=== PATIENT | male | born 1945 | race African-American/Black ===

== ENCOUNTER 2017-01-25 12:39 | Outpatient (CLI) | payer MEDICARE, BC | END 2017-01-25 23:59 | disposition home or self-care (01) | LOC: WOU 12:39 | PROVIDERS: ATTEND Podiatrist Foot & Ankle Surgery | DX: M72.2 Plantar fascial fibromatosis (principal); M76.72 Peroneal tendinitis, left leg; Z87.891 Personal history of nicotine dependence | CPT/HCPCS: G0463 ==

== ENCOUNTER 2017-02-05 12:50 | Outpatient (CLI) | payer MEDICARE, BC | END 2017-02-05 23:59 | disposition home or self-care (01) | LOC: WOU 12:50 | PROVIDERS: ATTEND Podiatrist Foot & Ankle Surgery | DX: M72.2 Plantar fascial fibromatosis (principal); R60.0 Localized edema; M19.072 Primary osteoarthritis, left ankle and foot; M65.862 Other synovitis and tenosynovitis, left lower leg; S93.692A Other sprain of left foot, initial encounter; X58.XXXA Exposure to other specified factors, initial encounter; Y92.89 Other specified places as the place of occurrence of the external cause | CPT/HCPCS: G0463 ==

== ENCOUNTER 2017-03-12 13:04 | Outpatient (CLI) | payer MEDICARE, BC | END 2017-03-12 23:59 | disposition home or self-care (01) | LOC: WOU 13:04 | PROVIDERS: ATTEND Podiatrist Foot & Ankle Surgery | DX: M72.2 Plantar fascial fibromatosis (principal); M65.862 Other synovitis and tenosynovitis, left lower leg; R60.0 Localized edema; I10 Essential (primary) hypertension; Z88.0 Allergy status to penicillin | CPT/HCPCS: G0463 ==

== ENCOUNTER 2017-04-09 08:38 | Outpatient (CLI) | payer MEDICARE, BC | END 2017-04-09 23:59 | disposition home or self-care (01) | LOC: WOU 08:38 | PROVIDERS: ATTEND Podiatrist Foot & Ankle Surgery | DX: M65.872 Other synovitis and tenosynovitis, left ankle and foot (principal); M72.2 Plantar fascial fibromatosis; R60.0 Localized edema | CPT/HCPCS: G0463 ==

== ENCOUNTER 2017-05-08 08:00 | Outpatient (CLI) | payer MEDICARE, BC | END 2017-05-08 23:59 | disposition home or self-care (01) | LOC: WOU 08:00 | PROVIDERS: ATTEND Podiatrist Foot & Ankle Surgery | DX: M21.42 Flat foot [pes planus] (acquired), left foot (principal); M21.41 Flat foot [pes planus] (acquired), right foot; M65.872 Other synovitis and tenosynovitis, left ankle and foot; L85.3 Xerosis cutis | CPT/HCPCS: G0463 ==

== ENCOUNTER 2017-06-25 13:22 | Outpatient (CLI) | payer MEDICARE, BC | END 2017-06-25 23:59 | disposition home or self-care (01) | LOC: WOU 13:22 | PROVIDERS: ATTEND Podiatrist Foot & Ankle Surgery | DX: M25.872 Other specified joint disorders, left ankle and foot (principal); S90.122A Contusion of left lesser toe(s) without damage to nail, initial encounter; W18.30XA Fall on same level, unspecified, initial encounter; Y93.K1 Activity, walking an animal; Y92.89 Other specified places as the place of occurrence of the external cause; S90.32XA Contusion of left foot, initial encounter; E87.2 Acidosis | CPT/HCPCS: G0463 ==

== ENCOUNTER 2017-06-26 11:26 | Outpatient (CLI) | payer MEDICARE, BC | END 2017-06-26 23:59 | disposition home or self-care (01) | LOC: RAD 11:26 | PROVIDERS: ATTEND Podiatrist Foot & Ankle Surgery | DX: M19.072 Primary osteoarthritis, left ankle and foot (principal); M19.071 Primary osteoarthritis, right ankle and foot; M20.11 Hallux valgus (acquired), right foot; M21.611 Bunion of right foot; M21.072 Valgus deformity, not elsewhere classified, left ankle; M21.071 Valgus deformity, not elsewhere classified, right ankle | CPT/HCPCS: 73630-TC ==

== ENCOUNTER 2017-07-03 10:45 | Outpatient (CLI) | payer MEDICARE, BC | END 2017-07-03 23:59 | disposition home or self-care (01) | LOC: WOU 10:45 | PROVIDERS: ATTEND Podiatrist Foot & Ankle Surgery | DX: S99.922D Unspecified injury of left foot, subsequent encounter (principal); M25.572 Pain in left ankle and joints of left foot; M79.672 Pain in left foot; B35.3 Tinea pedis; W18.30XD Fall on same level, unspecified, subsequent encounter; Y93.K1 Activity, walking an animal; I82.5Z2 Chronic embolism and thrombosis of unspecified deep veins of left distal lower extremity; Z79.01 Long term (current) use of anticoagulants | CPT/HCPCS: G0463 ==

== ENCOUNTER 2017-07-31 10:14 | Outpatient (CLI) | payer MEDICARE, BC | END 2017-07-31 23:59 | disposition home or self-care (01) | LOC: WOU 10:14 | PROVIDERS: ATTEND Podiatrist Foot & Ankle Surgery | DX: B35.3 Tinea pedis (principal); M72.2 Plantar fascial fibromatosis; R60.0 Localized edema; M25.572 Pain in left ankle and joints of left foot; Z86.718 Personal history of other venous thrombosis and embolism; Z79.01 Long term (current) use of anticoagulants | CPT/HCPCS: G0463 ==

== ENCOUNTER 2017-08-01 08:54 | Outpatient (CLI) | payer MEDICARE, BC ==
[2017-08-01] MEDS ORDERED: IOHEXOL-300 100 ML VIAL IV ONE (09:15)
[2017-08-01] MEDS ORDERED: CT SWABBABLE VALVE TRANS SET 1 EA INFUS.SET MC ONE (09:15)
[2017-08-02 08:10] LABS: HOMOCYSTEINE, PLASMA 9.4 umol/L (0.0-15.0)
== END 2017-08-01 23:59 | disposition home or self-care (01) ==
LOC: CT 08:54
PROVIDERS: ATTEND Internal Medicine Hematology & Oncology
DX: N40.0 Benign prostatic hyperplasia without lower urinary tract symptoms (principal); I82.4Z2 Acute embolism and thrombosis of unspecified deep veins of left distal lower extremity; M47.894 Other spondylosis, thoracic region; I25.10 Atherosclerotic heart disease of native coronary artery without angina pectoris; N28.1 Cyst of kidney, acquired; J90 Pleural effusion, not elsewhere classified
CPT/HCPCS: 36415; 71270; 74178; 81240; 81241; 83090; 85303; 85305; 85613; 85670; 85705; 85732; 86038; Q9967

== ENCOUNTER 2017-09-05 09:02 | Emergency (ER) | payer MEDICARE, BC ==
[2017-09-05] MEDS ORDERED: RIVA10TA PO (11:33)
[2017-09-05] MEDS ORDERED: TERA10CA4 PO (11:33)
[2017-09-05] MEDS ORDERED: AMLO10TA6 PO (11:33)
[2017-09-05] MEDS ORDERED: METO-357 PO (11:33)
[2017-09-05] MEDS ORDERED: MULT-1196 PO (11:33)
[2017-09-05] MEDS ORDERED: FINA5TAB11 PO (11:33)
[2017-09-05] MEDS ORDERED: SIMV20TA6 PO (11:33)
[2017-09-05] MEDS ORDERED: BENA40TA8 PO (11:33)
== END 2017-09-05 09:14 | disposition left against medical advice (07) ==
LOC: ER 09:04
DX: Z53.21 Procedure and treatment not carried out due to patient leaving prior to being seen by health care provider (principal)

== ENCOUNTER 2017-09-05 10:58 | Inpatient (IN) | payer MEDICARE, BC ==
[2017-09-05] VITALS: BP 141/60
[~2017-09-05] VITALS: Ht 182.9 cm; Wt 95.7 kg
--- NOTE | 2017-09-05 11:05 | NUR ---
[id number]: C/O PALPITATIONS, UNCONTROLLED A-FIB PER CLINIC. PATIENT ARRIVED WITH IV ON RFA, 18G, PATENT. A/OX 4. BREATHING EVEN AND UNLABORED. NO SOB, TACHYCARDIC, HR FLUCTUATING UP TO 140'S. SAFETY AND COMFORT MEASURES IN PLACE. MD AT BEDSIDE FOR EVAL.
[2017-09-05] MEDS ORDERED: DILTIAZEM HCL 25 MG IV ONE (11:20)
[2017-09-05] MEDS ORDERED: ASPIRIN 325 MG TABLET ONE (11:20)
[2017-09-05 11:23] LABS: BASOPHILS % (AUTO) 0.2 % (0.0-2.0); EOSINOPHILS % (AUTO) 1.9 % (0.0-6.0); HEMATOCRIT 43 % (39-51); HEMOGLOBIN 14.7 g/dL (13.5-17.5); LYMPHOCYTES # (AUTO) 1.7 /CMM (0.8-4.8); LYMPHOCYTES % (AUTO) 26.1 % (20.0-44.0); MEAN CORPUSCULAR HGB CONC 34 g/dl (31.0-36.0); MEAN CORPUSCULAR VOLUME 89 fL (80-96); MONOCYTES # (AUTO) 0.6 /CMM (0.1-1.30); MONOCYTES % (AUTO) 9.8 % (2.0-12.0); PLATELET COUNT (AUTO) 170 /CMM (150-450); RDW COEFFICIENT OF VARIATION 13.9 (11.5-15.0); RED BLOOD CELL COUNT(AUTO) 4.86 MIL/uL (4.5-6.0); WHITE BLOOD COUNT (AUTO) 6.4 K/uL (4.3-11.0)
[2017-09-05] MEDS ORDERED: DILTIAZEM HCL IV 125 MG in IV D5W 100 ML IV ONE (11:30)
[2017-09-05] MEDS ORDERED: ASPIRIN 325 MG TABLET PO ONE (11:30)
[2017-09-05] MEDS ORDERED: DILTIAZEM HCL 25 MG IV IVP ONE (11:30)
[2017-09-05] MEDS ORDERED: IV NS 0.9% 500 ML BAG IV ONE (11:30)
[2017-09-05 11:33] LABS: CALCIUM, SERUM 9.1 mg/dL (8.5-10.1); CARBON DIOXIDE 28 mmol/L (21-32); CHLORIDE 104 mmol/L (98-107); CREATININE 1.2 mg/dL (0.6-1.3); GLUCOSE 130 mg/dL (74-106); POTASSIUM 3.7 mmol/L (3.5-5.1); SODIUM SERUM 141 mmol/L (136-145); UREA NITROGEN, BLOOD 20 mg/dL (7-18)
[2017-09-05] MEDS ORDERED: MULT-1196 PO (11:33)
[2017-09-05] MEDS ORDERED: BENA40TA8 PO (11:33)
[2017-09-05] MEDS ORDERED: TERA10CA4 PO (11:33)
[2017-09-05] MEDS ORDERED: SIMV20TA6 PO (11:33)
[2017-09-05] MEDS ORDERED: METO-357 PO (11:33)
[2017-09-05] MEDS ORDERED: FINA5TAB11 PO (11:33)
[2017-09-05] MEDS ORDERED: RIVA10TA PO (11:33)
[2017-09-05] MEDS ORDERED: AMLO10TA6 PO (11:33)
[2017-09-05 11:37] LABS: INR 1.15 (0.87-1.13)
[2017-09-05 11:43] LABS: TROPONIN I < 0.017 ng/mL (0.00-0.056)
--- NOTE | 2017-09-05 12:20 | NUR ---
RECEIVED ADMITTING ORDERS FROM DR. OCASIO AND PLACED IN CHART.
--- NOTE | 2017-09-05 12:30 | NUR ---
REPORT GIVEN TO AUGUSTO NAVARRETE FOR VJ.
[2017-09-05] MEDS ORDERED: Magnesium 1GM/D5W 100ML PREMIX 200 ML IV ONE (12:42)
[2017-09-05] MEDS: Magnesium 1GM/D5W 100ML PREMIX 100 ML IV SCH ×2 (12:45→13:30)
--- NOTE | 2017-09-05 12:45 | NUR ---
INFUSE 2 BAGS OF MAG OVER [address] PIERCE, MEDICATION INFUSING ON TRANSFER TO FLOOR.
--- NOTE | 2017-09-05 12:50 | NUR ---
DR. CURRAN AT BEDSIDE FOR EVAL.
--- NOTE | 2017-09-05 12:55 | NUR ---
PATIENT TRANSPORTED TO [facility] VIA ACLS PROTOCOL, RNAUGUSTO TO PROVIDE VJ.
[2017-09-05] MEDS: BENAZEPRIL HCL 5 MG TABLET PO SCH (13:00)
[2017-09-05] MEDS: FINASTERIDE (5 MG) 5 MG TABLET PO SCH (13:00)
[2017-09-05 13:19] VITALS: BP 111/70
--- NOTE | 2017-09-05 13:20 | NUR ---
ALIYAH RN NOTE RECEIVED PATIENT FROM ER WITH DX RVR AFIB , ALERT ORIENTED X4 ,UNDER CARE DR OCASIO . PLACED ON TELE MONITOR A FIB 105 , VS TAKEN , HOSPITAL ORIENTATION DONE BODY CHECK DONE, KEEP BED IN LOWEST AND LOCKED POSITION , NO C\O CHEST PAIN OR DISCOMFORT AT THIS TIME , NO SOB ON RA SAT 95% , RT FA HL INTACT ON CARDIZEM DRIP ORDERED FROM ER , WILL CONT TO MONITOR CLOSELY
[2017-09-05 13:30] VITALS: BP 111/70
[2017-09-05] MEDS: METOPROLOL SUCCINATE 50 MG TAB.SR.24H PO SCH (14:30)
[2017-09-05 14:47] LABS: THYROID STIMULATING HORMONE 2.462 uIU/mL (0.358-3.74)
[2017-09-05] MEDS: NITROGLYCERIN 30 GM TUBE TP SCH (15:00)
[2017-09-05] MEDS ORDERED: ONDANSETRON HCL/PF 4 MG/2 ML VIAL IVP PRN (15:00)
[2017-09-05] MEDS ORDERED: ACETAMINOPHEN 325 MG TABLET PO PRN (15:00)
--- NOTE | 2017-09-05 15:13 | NUR ---
ALIYAH RN NOTE \PER PATIENT METOPROLOL AND BENAZEPRIL, PROSCAR WAS TAKEN BY PATENT EARLIER IN AM ALSO CALLED PHARMACY TO CLARIFY DOSE BENANSERIN, SPOKE WITH CARLOS STATED THAT DR OCASIO WILL CHANGE DOSE OF BENAZEPRIL, LEXIE HAS TAKEN AT HOME 40 MG WILL F\U CONSENT FOR STRESS TEST OBTAINED Addendum: 09/05/17 at 1517 by AUGUSTO CARMEN RN NITRO BID OINT HOLD PER ORDER BP 102/59 HR 78
[2017-09-05] MEDS ORDERED: DILTIAZEM HCL IV 125 MG in IV D5W 100 ML IV PRN (15:30)
[2017-09-05 16:00] VITALS: BP 90/61
[2017-09-05 16:25] VITALS: BP 90/61
--- NOTE | 2017-09-05 16:46 | NUR ---
ALIYAH RN NOTE ,SPOKE WIT DR OCASIO NOTIFIED THAT PATIENT ON TELE MONITOR AFIB HR 88 BUT BP 90/61 NO C\O CHEST PAIN, ON CARDIZEM DRIP 8 MG PER HOUR, PER DR OCASIO ORDER OK TO STOP CARDIZEM DRIP ,ALSO 2D ECHO DONE, CONSENT SIGNED FOR STRES TEST
[2017-09-05] MEDS ORDERED: RIVAROXABAN 10 MG TABLET PO SCH (17:00)
[2017-09-05] MEDS: DIGOXIN INJ 0.5 MG/2 ML AMPUL IV SCH (17:46)
[2017-09-05] MEDS ORDERED: SIMVASTATIN 20 MG TABLET PO SCH (18:00)
[2017-09-05] MEDS ORDERED: ATORVASTATIN 10 MG TABLET PO SCH (18:00)
[2017-09-05 19:10] LABS: MAGNESIUM 2.4 mg/dL (1.8-2.4); PHOSPHORUS 2.8 mg/dL (2.5-4.9)
--- NOTE | 2017-09-05 19:25 | NUR ---
TRADE MARK EXAMINER NOTE PATIENT WILL HAVE STRESS TEST OK TO KEEP NPO AFTER MID MIGHT
--- NOTE | 2017-09-05 20:34 | NUR ---
RN ALIYAH INITIAL NOTE RECEIVED PT IN BED, AOX4, ON RA WELL TOLERATED, DENIES ANY DISCOMFORT AT THIS TIME, S/P CARDIZEM DRIP 10 MG, STOPPED D/T BP DECREASE TO 90/61, HR 80, NPO AFTER MDNIGHT FOR STRESS TEST IN AM PT AWARE PER AM NURSE. CURRENT BP 141/60, 59, 20, 98.8 AND 98%. WILL CONT TO MONITOR THROUGH SHIFT. ALL NEEDS ATTENDED CALL LIGHT W/R.
[2017-09-05 21:00] VITALS: BP 141/60
[2017-09-05] MEDS ORDERED: METOPROLOL TARTRATE 25 MG TABLET PO SCH (21:00)
[2017-09-06] MEDS: NITROGLYCERIN 30 GM TUBE TP SCH ×2 (00:28→06:09)
--- NOTE | 2017-09-06 00:33 | NUR ---
0000 DIGOXIN HELD HR 54
[2017-09-06 01:00] VITALS: BP 123/73
[2017-09-06 05:00] VITALS: BP 113/65
[2017-09-06] MEDS: DIGOXIN INJ 0.5 MG/2 ML AMPUL IV SCH ×2 (06:08)
--- NOTE | 2017-09-06 06:09 | NUR ---
RN ALIYAH CLOSING 0600 DIGOXIN 0.5MG AND NITRO PATCH 30GM NOT GIVEN BP AND HR 113/73 58, PT SCHEDULED FOR STRESS TEST IN AM, CONCERNED BP MIGHT DROP FURTHER. WILL ENDORSE TO AM SHIFT MONITOR.
[2017-09-06 07:19] LABS: EOSINOPHILS % (AUTO) 2.9 % (0.0-6.0); HEMATOCRIT 38 % (39-51); HEMOGLOBIN 12.9 g/dL (13.5-17.5); LYMPHOCYTES # (AUTO) 2.4 /CMM (0.8-4.8); LYMPHOCYTES % (AUTO) 36.1 % (20.0-44.0); MEAN CORPUSCULAR HGB CONC 34 g/dl (31.0-36.0); MEAN CORPUSCULAR VOLUME 90 fL (80-96); MONOCYTES # (AUTO) 0.7 /CMM (0.1-1.30); MONOCYTES % (AUTO) 9.9 % (2.0-12.0); NEUTROPHILS # (AUTO) 3.4 /CMM (1.8-8.9); NEUTROPHILS % (AUTO) 51.1 % (43.0-81.0); PLATELET COUNT (AUTO) 164 /CMM (150-450); RDW COEFFICIENT OF VARIATION 14.3 (11.5-15.0); RED BLOOD CELL COUNT(AUTO) 4.19 MIL/uL (4.5-6.0); WHITE BLOOD COUNT (AUTO) 6.6 K/uL (4.3-11.0)
[2017-09-06 07:48] LABS: TROPONIN I < 0.017 ng/mL (0.00-0.056)
[2017-09-06 07:50] LABS: ALANINE AMINOTRANSFERASE 23 U/L (12-78); ALBUMIN 2.9 g/dL (3.4-5.0); ALKALINE PHOSPHATASE 29 U/L (46-116); ASPARTATE AMINOTRANSFERASE 16 U/L (15-37); BILIRUBIN,TOTAL 0.4 mg/dL (0.2-1.0); CALCIUM, SERUM 8.3 mg/dL (8.5-10.1); CARBON DIOXIDE 29 mmol/L (21-32); CHLORIDE 107 mmol/L (98-107); CREATININE 1.3 mg/dL (0.6-1.3); GLUCOSE 96 mg/dL (74-106); MAGNESIUM 2.9 mg/dL (1.8-2.4); PHOSPHORUS 3.7 mg/dL (2.5-4.9); POTASSIUM 3.8 mmol/L (3.5-5.1); SODIUM SERUM 141 mmol/L (136-145); UREA NITROGEN, BLOOD 20 mg/dL (7-18)
[2017-09-06 07:53] LABS: CHOLESTEROL 148 mg/dL (<200); HDL CHOLESTEROL 50 mg/dL (40-60); LDL 92 mg/dL (0-99); TRIGLYCERIDES 61 mg/dL (30-150)
[2017-09-06 08:00] VITALS: BP 109/53
[2017-09-06] MEDS ORDERED: REGADENOSON 0.4 MG/5 ML DISP.SYRIN IVP ONE (08:30)
--- NOTE | 2017-09-06 08:30 | NUR ---
MS RN NOTE 7821: S/E by dr. faith, with order to may DC tele and transfer to MS. SB 55 on the monitor,. DCd tele, CN aware.
[2017-09-06] MEDS: METOPROLOL SUCCINATE 50 MG TAB.SR.24H PO SCH (09:00)
[2017-09-06] MEDS ORDERED: TERAZOSIN HCL 5 MG CAPSULE PO SCH (09:00)
[2017-09-06] MEDS ORDERED: MULTIPLE VIT (LYCOPENE/FA/MV,CA,IRON,MIN/LUT)1 TAB PO SCH (09:00)
[2017-09-06] MEDS: BENAZEPRIL HCL 5 MG TABLET PO SCH (10:03)
[2017-09-06] MEDS: FINASTERIDE (5 MG) 5 MG TABLET PO SCH (10:03)
[2017-09-06 10:04] VITALS: BP 109/53
--- NOTE | 2017-09-06 12:42 | NUR ---
MS RN NOTE 0720: Received patient awake, A/Ox4. Tolerated room air. No c/o CP, any discomfort or distress. PIV intact. Able to go to BR independently, encouraged to use call light if needed assistance. 0830: S/E by dr. Yan and Dr. Marshall, awaiting NM for stress test. 0900: Patient went to stress test, patient aware for the procedure. 1000: Patient back to stress test after breakfast. 1130: Patient back to room in good condition. No significant changes, encouraged to drink lots of water. 1240: No any significant changes noted.
--- NOTE | 2017-09-06 15:28 | NUR ---
RN NOTE 1350: Dr. Yan called and ordered for DC home, MD made DC orders and medication list, explained to patient, verbalized understanding. 1520: Discharged patient in good condition. VSS. Removed PIV, no bleeding, applied pressure and dressing. Patient verbalized understanding re: the DC instructions, meds and follow up with Dr. faith in 1 week. Checked all belongings and signed belonging list.
[2017-09-06 18:21] LABS: FREE PSA 0.22 ng/mL (0.00-45); PROSTATE SPECIFIC ANTIGEN SCR 1.36 ng/mL (0.00-4.00)
== END 2017-09-06 15:21 | disposition home or self-care (01) | DRG 309 ==
LOC: ER 11:04 → TELE-TD 12:34 → MEDSG1 09-06 09:26
PROVIDERS: ADMIT Legal Medicine; ATTEND Legal Medicine
DX: I48.91 Unspecified atrial fibrillation (principal); D68.59 Other primary thrombophilia; N40.0 Benign prostatic hyperplasia without lower urinary tract symptoms; Z86.718 Personal history of other venous thrombosis and embolism; E03.9 Hypothyroidism, unspecified; E78.5 Hyperlipidemia, unspecified; I10 Essential (primary) hypertension; Z79.01 Long term (current) use of anticoagulants; Z88.0 Allergy status to penicillin; R07.9 Chest pain, unspecified; N41.9 Inflammatory disease of prostate, unspecified
CPT/HCPCS: 36415; 71045-TC; 80048-TC; 80053-TC; 80061-TC; 82306; 83735-TC; 84100-TC; 84153-TC; 84154-TC; 84439-TC; 84443-TC; 84484-TC; 85025-TC; 85730-TC; 87081-TC; 93307-TC; A4606; A9502; J1160; J2785; J3475; J3490; J7040; J7060; Z7610

== ENCOUNTER 2017-09-09 15:03 | Emergency (ER) | payer MEDICARE, BC ==
[~2017-09-09] VITALS: Ht 182.9 cm; Wt 95.7 kg
[~2017-09-09 15:03] MED LIST: BENA40TA8 PO; FINA5TAB11 PO; METO-357 PO; MULT-1196 PO; RIVA10TA PO; SIMV20TA6 PO; TERA10CA4 PO
--- NOTE | 2017-09-09 15:10 | NUR ---
AAOX3, CAME TO ER C/O LEFT SIDE CHEST DISCOMFORT, PRESSURE-LIKE SINCE 10AM. RR IS EVEN AND UNLABORED WITH NAD NOTED. SKIN IS WARM AND DRY. PLACED ON THE MONITOR. WILL CONTINUOUSLY MONITOR THE PATIENT. AWAITING MD FOR EVAL.
[2017-09-09 15:31] LABS: BASOPHILS % (AUTO) 0.3 % (0.0-2.0); EOSINOPHILS % (AUTO) 1.8 % (0.0-6.0); HEMATOCRIT 43 % (39-51); HEMOGLOBIN 14.5 g/dL (13.5-17.5); LYMPHOCYTES # (AUTO) 2.3 /CMM (0.8-4.8); MEAN CORPUSCULAR HGB CONC 34 g/dl (31.0-36.0); MEAN CORPUSCULAR VOLUME 89 fL (80-96); MONOCYTES # (AUTO) 0.8 /CMM (0.1-1.30); NEUTROPHILS # (AUTO) 4.3 /CMM (1.8-8.9); NEUTROPHILS % (AUTO) 56.9 % (43.0-81.0); PLATELET COUNT (AUTO) 193 /CMM (150-450); RDW COEFFICIENT OF VARIATION 13.4 (11.5-15.0); RED BLOOD CELL COUNT(AUTO) 4.79 MIL/uL (4.5-6.0); WHITE BLOOD COUNT (AUTO) 7.5 K/uL (4.3-11.0)
[2017-09-09 15:43] LABS: CALCIUM, SERUM 9.5 mg/dL (8.5-10.1); CARBON DIOXIDE 30 mmol/L (21-32); CHLORIDE 103 mmol/L (98-107); CREATININE 1.4 mg/dL (0.6-1.3); GLUCOSE 123 mg/dL (74-106); POTASSIUM 3.9 mmol/L (3.5-5.1); SODIUM SERUM 139 mmol/L (136-145); UREA NITROGEN, BLOOD 26 mg/dL (7-18)
[2017-09-09 15:45] LABS: INR 1.13 (0.85-1.15)
[2017-09-09 15:49] LABS: TROPONIN I < 0.017 ng/mL (0.00-0.056)
[2017-09-09 15:59] LABS: ALANINE AMINOTRANSFERASE 23 U/L (12-78); ALBUMIN 3.5 g/dL (3.4-5.0); ALKALINE PHOSPHATASE 38 U/L (46-116); ASPARTATE AMINOTRANSFERASE 23 U/L (15-37); BILIRUBIN,DIRECT 0.2 mg/dL (0.0-0.2); BILIRUBIN,TOTAL 0.4 mg/dL (0.2-1.0); TOTAL PROTEIN, SERUM 7.4 g/dL (6.4-8.2)
--- NOTE | 2017-09-09 16:37 | NUR ---
IV removed. Catheter intact and site benign. Pressure and 4x4 applied to site. No bleeding noted.Patient discharged to home in stable condition. Written and verbal after care instructions given. Patient verbalizes understanding of instruction.
[2017-09-09 16:39] VITALS: BP 138/81
== END 2017-09-09 16:40 | disposition home or self-care (01) ==
LOC: ER 15:06
DX: R00.2 Palpitations (principal); I48.91 Unspecified atrial fibrillation; T43.615A Adverse effect of caffeine, initial encounter; E03.9 Hypothyroidism, unspecified; I10 Essential (primary) hypertension; Z88.0 Allergy status to penicillin; Y92.89 Other specified places as the place of occurrence of the external cause; Z86.718 Personal history of other venous thrombosis and embolism
CPT/HCPCS: 36415; 71045-TC; 80048-TC; 80076-TC; 84484-TC; 85025-TC; 85730-TC; A4606; Z7610

== ENCOUNTER 2017-11-11 16:01 | Outpatient (CLI) | payer MEDICARE, BC | END 2017-11-11 23:59 | disposition home or self-care (01) | LOC: CARD 16:01 | PROVIDERS: ATTEND Internal Medicine Interventional Cardiology | DX: I82.403 Acute embolism and thrombosis of unspecified deep veins of lower extremity, bilateral (principal) | CPT/HCPCS: 93970-TC ==

== ENCOUNTER 2018-10-08 21:01 | Emergency (ER) | payer MEDICARE, BC ==
[~2018-10-08] VITALS: Ht 188 cm; Wt 99.8 kg
--- NOTE | 2018-10-08 22:00 | NUR ---
A, OX4, BIBS REPORTED HAD TAKEN WRONG MEDICATION. + PALPITATION. - PAIN OR DISCOMFORT. VSS. PLACED ON MONITOR , WILL CONT TO MONITOR ,
--- NOTE | 2018-10-09 00:16 | NUR ---
AMBULATING IN THE HALLWAY. REPORTED WIILING TO LEAVE THE HOSPITAL. " I JUST WALKED TO THE HOSPITAL FOR FUN" . FALL PRECAUTION WERE REVIWE W/ THE PT/ WILL CONT TO MONITOR ,
--- NOTE | 2018-10-09 00:26 | NUR ---
Patient discharged to home in stable condition. Written and verbal after care instructions given. Patient verbalizes understanding of instruction.
[2018-10-09 00:28] VITALS: BP 145/88
== END 2018-10-09 00:29 | disposition home or self-care (01) ==
LOC: ER 21:05
DX: T38.0X1A Poisoning by glucocorticoids and synthetic analogues, accidental (unintentional), initial encounter (principal); T45.0X1A Poisoning by antiallergic and antiemetic drugs, accidental (unintentional), initial encounter; T38.1X1A Poisoning by thyroid hormones and substitutes, accidental (unintentional), initial encounter; R00.2 Palpitations; I10 Essential (primary) hypertension; I48.91 Unspecified atrial fibrillation; E03.9 Hypothyroidism, unspecified; Z98.890 Other specified postprocedural states; Y92.89 Other specified places as the place of occurrence of the external cause

== ENCOUNTER 2018-12-17 14:00 | Outpatient (CLI) | payer MEDICARE, BC | END 2018-12-17 23:59 | disposition home or self-care (01) | LOC: WOU 14:00 | PROVIDERS: ATTEND Podiatrist Foot & Ankle Surgery | DX: I83.892 Varicose veins of left lower extremity with other complications (principal); Z86.718 Personal history of other venous thrombosis and embolism; Z79.01 Long term (current) use of anticoagulants | CPT/HCPCS: G0463 ==

== ENCOUNTER 2018-12-23 09:00 | Outpatient (CLI) | payer MEDICARE, BC | END 2018-12-23 23:59 | disposition home or self-care (01) | LOC: WOU 09:00 | PROVIDERS: ATTEND Podiatrist Foot & Ankle Surgery | DX: I83.90 Asymptomatic varicose veins of unspecified lower extremity (principal); R60.0 Localized edema; M21.42 Flat foot [pes planus] (acquired), left foot; M21.41 Flat foot [pes planus] (acquired), right foot; L74.4 Anhidrosis; Z86.718 Personal history of other venous thrombosis and embolism; Z79.01 Long term (current) use of anticoagulants | CPT/HCPCS: G0463 ==

== ENCOUNTER 2019-03-27 17:31 | Emergency (ER) | payer MEDICARE, BC ==
[~2019-03-27] VITALS: Ht 185.4 cm; Wt 83.9 kg
[~2019-03-27 17:31] MED LIST changes: +SIMV-46 PO; -SIMV20TA6 PO
--- NOTE | 2019-03-27 17:40 | NUR ---
cristina 73 year old male c/o Lower back pain after visting the chiropractor today. alert and oriented x4, breathing even and unlabored with no distress noted. skin intact. waiting to be seen by
[2019-03-27] MEDS ORDERED: ONDANSETRON HCL/PF 4 MG/2 ML VIAL ONE (17:51)
[2019-03-27] MEDS ORDERED: HYDROMORPHONE 1 MG/1 ML DISP.SYRIN ONE (17:52)
[2019-03-27] MEDS ORDERED: HYDROMORPHONE 1 MG/1 ML DISP.SYRIN IV ONE (18:00)
[2019-03-27] MEDS ORDERED: ONDANSETRON HCL/PF - ER 4 MG/2 ML VIAL IV ONE (18:00)
--- NOTE | 2019-03-27 18:48 | NUR ---
patient able to ambulate to restroom with assist
[2019-03-27 19:27] VITALS: BP 130/74
--- NOTE | 2019-03-27 19:27 | NUR ---
Patient discharged to home in stable condition. Written and verbal after care instructions given. Patient verbalizes understanding of instruction. IV removed. Catheter intact and site benign. Pressure and 4x4 applied to site. No bleeding noted.
== END 2019-03-27 19:28 | disposition home or self-care (01) ==
LOC: ER 17:35
DX: M54.5 Low back pain (principal); I10 Essential (primary) hypertension; I48.91 Unspecified atrial fibrillation; E03.9 Hypothyroidism, unspecified; Z98.890 Other specified postprocedural states; Z79.899 Other long term (current) drug therapy
CPT/HCPCS: 96374; 96375; 99283; J1170; J2405

== ENCOUNTER 2019-10-21 13:48 | Outpatient (CLI) | payer MEDICARE, BC | END 2019-10-21 23:59 | disposition home or self-care (01) | LOC: WOU 13:48 | PROVIDERS: ATTEND Podiatrist Foot & Ankle Surgery | DX: M21.42 Flat foot [pes planus] (acquired), left foot (principal); M21.41 Flat foot [pes planus] (acquired), right foot; M25.572 Pain in left ankle and joints of left foot; M25.571 Pain in right ankle and joints of right foot; R60.0 Localized edema | CPT/HCPCS: G0463 ==

== ENCOUNTER 2019-11-04 13:55 | Outpatient (CLI) | payer MEDICARE, BC | END 2019-11-04 23:59 | disposition home or self-care (01) | LOC: WOU 13:55 | PROVIDERS: ATTEND Podiatrist Foot & Ankle Surgery | DX: M21.42 Flat foot [pes planus] (acquired), left foot (principal); M21.41 Flat foot [pes planus] (acquired), right foot; M19.072 Primary osteoarthritis, left ankle and foot; M19.071 Primary osteoarthritis, right ankle and foot; M20.22 Hallux rigidus, left foot; M20.21 Hallux rigidus, right foot; M25.572 Pain in left ankle and joints of left foot; M25.571 Pain in right ankle and joints of right foot | CPT/HCPCS: G0463 ==

== ENCOUNTER 2019-11-12 10:05 | Outpatient (CLI) | payer MEDICARE, BC | END 2019-11-12 23:59 | disposition home or self-care (01) | LOC: MRI 10:05 | PROVIDERS: ATTEND Student in an Organized Health Care Education/Training Program | DX: M16.0 Bilateral primary osteoarthritis of hip (principal); M76.892 Other specified enthesopathies of left lower limb, excluding foot; M76.891 Other specified enthesopathies of right lower limb, excluding foot; N40.0 Benign prostatic hyperplasia without lower urinary tract symptoms | CPT/HCPCS: 73721-TC ==

== ENCOUNTER 2019-11-27 08:40 | Outpatient (CLI) | payer MEDICARE, BC | END 2019-11-27 23:59 | disposition home or self-care (01) | LOC: WOU 08:40 | PROVIDERS: ATTEND Podiatrist Foot & Ankle Surgery | DX: M21.42 Flat foot [pes planus] (acquired), left foot (principal); M21.41 Flat foot [pes planus] (acquired), right foot; R60.0 Localized edema; M77.32 Calcaneal spur, left foot; M77.31 Calcaneal spur, right foot; M20.22 Hallux rigidus, left foot; M20.21 Hallux rigidus, right foot; M25.572 Pain in left ankle and joints of left foot; M25.571 Pain in right ankle and joints of right foot | CPT/HCPCS: G0463 ==

== ENCOUNTER 2020-01-05 09:30 | Outpatient (CLI) | payer MEDICARE, BC | END 2020-01-05 23:59 | disposition home or self-care (01) | LOC: WOU 09:30 | PROVIDERS: ATTEND Podiatrist Foot & Ankle Surgery | DX: M77.32 Calcaneal spur, left foot (principal); M77.31 Calcaneal spur, right foot; M21.42 Flat foot [pes planus] (acquired), left foot; M21.41 Flat foot [pes planus] (acquired), right foot; M20.22 Hallux rigidus, left foot; M20.21 Hallux rigidus, right foot; M25.572 Pain in left ankle and joints of left foot; M25.571 Pain in right ankle and joints of right foot | CPT/HCPCS: G0463 ==

== ENCOUNTER 2022-06-13 11:15 | Outpatient (CLI) | payer MEDICARE, BC ==
[2022-06-13 12:17] LABS: BASOPHILS % (AUTO) 0.2 % (0.0-2.0); EOSINOPHILS % (AUTO) 3.4 % (0.0-6.0); HEMATOCRIT 40 % (39-51); HEMOGLOBIN 13.2 g/dL (13.5-17.5); LYMPHOCYTES # (AUTO) 1.6 K/uL (0.8-4.8); MEAN CORPUSCULAR HGB CONC 33 g/dl (31.0-36.0); MEAN CORPUSCULAR VOLUME 91 fL (80-96); MONOCYTES # (AUTO) 0.5 K/uL (0.1-1.30); MONOCYTES % (AUTO) 9.1 % (2.0-12.0); NEUTROPHILS # (AUTO) 2.8 K/uL (1.8-8.9); NEUTROPHILS % (AUTO) 55.3 % (43.0-81.0); PLATELET COUNT (AUTO) 159 K/uL (150-450); RED BLOOD CELL COUNT(AUTO) 4.41 MIL/uL (4.5-6.0); WHITE BLOOD COUNT (AUTO) 5.1 K/uL (4.3-11.0)
[2022-06-13 12:23] LABS: BILIRUBIN,URINE NEGATIVE (NEGATIVE); COLOR,URINE YELLOW (YELLOW); LEUKOCYTE ESTERASE ,URINE NEGATIVE (NEGATIVE); NITRITE, URINE NEGATIVE (NEGATIVE); PROTEIN,URINE NEGATIVE (NEGATIVE); UGLUCOSE NEGATIVE (NEGATIVE); UROBILINOGEN,URINE 0.2 EU/dL (0.2)
[2022-06-13 12:41] LABS: ALANINE AMINOTRANSFERASE 14 U/L (12-78); ALBUMIN 3.5 g/dL (3.4-5.0); ALKALINE PHOSPHATASE 37 U/L (46-116); ASPARTATE AMINOTRANSFERASE 21 U/L (15-37); BILIRUBIN,TOTAL 0.6 mg/dL (0.2-1.0); CALCIUM, SERUM 8.8 mg/dL (8.5-10.1); CARBON DIOXIDE 28 mmol/L (21-32); CHLORIDE 104 mmol/L (98-107); CREATININE 1.4 mg/dL (0.6-1.3); GLUCOSE 94 mg/dL (74-106); SODIUM SERUM 140 mmol/L (136-145); TOTAL PROTEIN, SERUM 6.8 g/dL (6.4-8.2); UREA NITROGEN, BLOOD 17 mg/dL (7-18)
[2022-06-13 13:05] LABS: BACTERIA,URINE Rare /HPF (None Seen); RBC,URINE 0-2 /HPF (0-2); SQUAMOUS EPITHELIAL CELL,UR Few /HPF (None Seen); WBC,URINE 0-2 /HPF (0-3)
== END 2022-06-13 23:59 | disposition home or self-care (01) ==
LOC: LAB 11:15
PROVIDERS: ATTEND Legal Medicine
DX: Z01.818 Encounter for other preprocedural examination (principal); Z79.01 Long term (current) use of anticoagulants
CPT/HCPCS: 36415; 80053-TC; 81001; 85025-TC; 85730-TC